=== PATIENT | male | born 1925 | race Caucasian/White ===

== ENCOUNTER 2016-08-26 17:47 | Inpatient (IN) | payer OTHER ==
[~2016-08-26] VITALS: Ht 170.2 cm; Wt 62.1 kg
[2016-08-26 18:57] LABS: Basophils # (auto) 0 uL; Basophils % (auto) 0.1 % (0.0-2.0); Eosinophils # (auto) 0 uL; Hematocrit 47.6 % (41.0-53.0); Hemoglobin 15.3 g/dL (13.5-17.5); Lymphocytes # (auto) 0.9 uL; Lymphocytes % (auto) 7.6 % (10.0-50.0); Mean Corpuscular Hemoglobin 31.9 pg (28.0-32.0); Mean Corpuscular Hgb Conc. 32.2 g/dL (32.0-36.0); Mean Corpuscular Volume 98.8 fL (80.0-100.0); Mean Platelet Volume 7.8 fL (7.4-10.4); Monocytes # (auto) 0.5 uL; Neutrophils # (auto) 10.3 uL; Neutrophils % (auto) 88.3 % (37.0-80.0); Platelet Count (auto) 263 10^3/uL (140-450); White Blood Cell 11.6 10^3/uL (4.4-10.8)
[2016-08-26 19:23] LABS: Albumin 4.6 g/dL (3.4-5.0); Bilirubin, Total 0.8 mg/dL (0.2-1.0); Calcium 10.2 mg/dL (8.5-10.1); Potassium 4.6 mmol/L (3.5-5.1); Total Protein 8.1 g/dL (6.4-8.2)
[2016-08-27] MEDS ORDERED: LORazepam 2MG/ML-1ML VIAL IV ONE ×2 (03:00→06:30)
[2016-08-27] MEDS ORDERED: LORazepam 2MG/ML-1ML VIAL ONE (06:08)
[2016-08-27] MEDS ORDERED: DOCUSATE SOD 100 MG CAP PO PRN (10:00)
[2016-08-27] MEDS ORDERED: LACTULOSE 20Gm/30ML SOLN PO PRN (10:00)
[2016-08-27] MEDS ORDERED: MORPHINE SULF INJ 2 MG/ML SYRINGE 1ML IV PRN ×2 (10:00)
[2016-08-27] MEDS ORDERED: TEMAZEPAM 15 MG CAP PO PRN (10:00)
[2016-08-27] MEDS ORDERED: NITROGLYCERIN 0.4 MG SL TAB SL PRN (10:00)
[2016-08-27] MEDS ORDERED: ACETAMINOPHEN 325 MG TAB PO PRN (10:00)
[2016-08-27] MEDS ORDERED: HYDROcodone-ACET 5/325MG TAB PO PRN (10:00)
[2016-08-27] MEDS ORDERED: ONDANSETRON HCL 4 MG/2 ML VIAL IV PRN (10:00)
[2016-08-27] MEDS ORDERED: LACTULOSE 20Gm/30ML SOLN PO ONE (10:00)
[2016-08-27] MEDS: MULTIPLE VITAMIN TAB PO SCH (10:17)
[2016-08-27] MEDS: ENOXAPARIN SOD 40 MG/0.4 ML SYRINGE SC SCH (10:17)
[2016-08-27] MEDS: FAMOTIDINE 20 MG TAB PO SCH ×2 (10:18→22:01)
[2016-08-27] MEDS: LISINOPRIL 20 MG TAB PO SCH (10:18)
[2016-08-27] MEDS: CYANOCOBALAMIN 500 MCG TAB PO SCH (10:19)
[2016-08-27] MEDS: ASPirin-EC 81 mg tab PO SCH (10:19)
[2016-08-27 13:00] VITALS: BP 123/63
[2016-08-27] MEDS: SODIUM CHLOR 0.9% PF (SALINE LOCK) 10ML VIAL IV SCH ×2 (14:07→22:02)
[2016-08-27 17:00] VITALS: BP 155/75
[2016-08-27] MEDS ORDERED: cefTRIAXone 1GM/50ML D5W 50 ML IV ONE (19:45)
[2016-08-27] MEDS ORDERED: ATORVASTATIN 20 MG TAB PO SCH (22:00)
[2016-08-27] MEDS ORDERED: TERAZOSIN HCL 5 MG CAP PO SCH (22:00)
[2016-08-27] MEDS: metroNIDAZOLE 500MG/100ML 100 ML IV SCH (22:02)
[2016-08-27] MEDS: DIAZEPAM 2 MG TAB PO PRN (23:55)
[2016-08-28] MEDS ORDERED: LORazepam 2MG/ML-1ML VIAL IV PRN (03:30)
[2016-08-28] MEDS: SODIUM CHLOR 0.9% PF (SALINE LOCK) 10ML VIAL IV SCH ×2 (05:20→14:16)
[2016-08-28] MEDS: metroNIDAZOLE 500MG/100ML 100 ML IV SCH ×2 (05:20→14:15)
[2016-08-28 06:14] LABS: Basophils # (auto) 0 uL; Basophils % (auto) 0.1 % (0.0-2.0); Eosinophils # (auto) 0 uL; Hematocrit 37.3 % (41.0-53.0); Hemoglobin 12.3 g/dL (13.5-17.5); Lymphocytes # (auto) 0.5 uL; Lymphocytes % (auto) 3.6 % (10.0-50.0); Mean Corpuscular Hemoglobin 32.5 pg (28.0-32.0); Mean Corpuscular Hgb Conc. 33.1 g/dL (32.0-36.0); Mean Corpuscular Volume 98.3 fL (80.0-100.0); Mean Platelet Volume 8.7 fL (7.4-10.4); Monocytes # (auto) 0.8 uL; Monocytes % (auto) 6.1 % (0.0-12.0); Neutrophils # (auto) 11.9 uL; Neutrophils % (auto) 90.2 % (37.0-80.0); Platelet Count (auto) 209 10^3/uL (140-450); Red Cell Distribution Width 14.1 % (11.6-16.0); White Blood Cell 13.2 10^3/uL (4.4-10.8)
[2016-08-28 06:37] LABS: Albumin 3.4 g/dL (3.4-5.0); BUN/Creatinine Ratio 22.8; Bilirubin, Total 0.9 mg/dL (0.2-1.0); Calcium 9.8 mg/dL (8.5-10.1); Potassium 4.3 mmol/L (3.5-5.1); Total Protein 6.9 g/dL (6.4-8.2)
[2016-08-28 08:30] VITALS: BP 95/55
[2016-08-28] MEDS: LISINOPRIL 20 MG TAB PO SCH (09:09)
[2016-08-28] MEDS: DIAZEPAM 2 MG TAB PO PRN (14:48)
[2016-08-28] MEDS: ASPirin-EC 81 mg tab PO SCH (14:49)
[2016-08-28] MEDS: FAMOTIDINE 20 MG TAB PO SCH (14:50)
[2016-08-28] MEDS: MULTIPLE VITAMIN TAB PO SCH (14:50)
[2016-08-28] MEDS: CYANOCOBALAMIN 500 MCG TAB PO SCH (14:50)
[2016-08-28] MEDS: ENOXAPARIN SOD 40 MG/0.4 ML SYRINGE SC SCH (14:51)
[2016-08-28 16:12] VITALS: BP 102/55
[2016-08-28] MEDS ORDERED: cefTRIAXone 1GM/50ML D5W 50 ML IV SCH (22:00)
[2016-08-29 11:03] LABS: Vitamin B12 > 2000 pg/mL (211-911)
[2016-08-29 11:05] LABS: Temperature: 22.3 C (20.0-25.0)
== END 2016-08-28 18:10 | disposition home or self-care (01) | DRG 388 ==
LOC: ER 17:55 → TELE 17:56 → TELE-CENTR 08-27 11:01
PROVIDERS: ADMIT Internal Medicine; ATTEND Internal Medicine
DX: K56.41 Fecal impaction (principal); G93.41 Metabolic encephalopathy; E83.52 Hypercalcemia; F02.80 Dementia in other diseases classified elsewhere, unspecified severity, without behavioral disturbance, psychotic disturbance, mood disturbance, and anxiety; G30.9 Alzheimer's disease, unspecified; I12.9 Hypertensive chronic kidney disease with stage 1 through stage 4 chronic kidney disease, or unspecified chronic kidney disease; K57.30 Diverticulosis of large intestine without perforation or abscess without bleeding; N18.3 Chronic kidney disease, stage 3 (moderate); N40.0 Benign prostatic hyperplasia without lower urinary tract symptoms; Z82.3 Family history of stroke; Z86.73 Personal history of transient ischemic attack (TIA), and cerebral infarction without residual deficits; Z98.890 Other specified postprocedural states; Z79.899 Other long term (current) drug therapy
CPT/HCPCS: 36415; 74176; 80053; 82607; 82746; 84439; 84443; 84484; 85025; 93005; 93306; 93886; 95819; 96374; 96375; J0696; J3490

== ENCOUNTER 2016-09-18 06:49 | Emergency (ER) | payer OTHER ==
[~2016-09-18] VITALS: Ht 172.7 cm; Wt 59.1 kg
[2016-09-18] MEDS ORDERED: SODIUM CHLORIDE 0.9% 250 ML IV ONE (07:58)
[2016-09-18 08:21] LABS: Urine Bilirubin Negative (Negative); Urine Blood Negative /uL (Negative); Urine Color Yellow (Yellow); Urine Glucose Normal (Normal); Urine Ketone Negative (Negative); Urine Mucus FEW (None Seen); Urine Nitrite Negative (Negative); Urine RBC 1 /hpf (0 - 3); Urine Squamous Epithelial Cell FEW /hpf (<5); Urine Urobilinogen Normal (Negative); Urine pH 5.5 (5.0-8.0)
[2016-09-18 08:23] LABS: Basophils # (auto) 0 uL; Basophils % (auto) 0.2 % (0.0-2.0); Eosinophils # (auto) 0 uL; Eosinophils % (auto) 0.7 % (0.0-7.0); Hematocrit 37.9 % (41.0-53.0); Lymphocytes % (auto) 13.9 % (10.0-50.0); Mean Corpuscular Hemoglobin 31.2 pg (28.0-32.0); Mean Corpuscular Hgb Conc. 31.6 g/dL (32.0-36.0); Mean Corpuscular Volume 98.6 fL (80.0-100.0); Mean Platelet Volume 8.1 fL (7.4-10.4); Monocytes # (auto) 0.5 uL; Monocytes % (auto) 6.5 % (0.0-12.0); Neutrophils # (auto) 5.5 uL; Neutrophils % (auto) 78.7 % (37.0-80.0); Platelet Count (auto) 327 10^3/uL (140-450); Red Cell Distribution Width 13.9 % (11.6-16.0)
[2016-09-18 08:33] LABS: BUN/Creatinine Ratio 24.6; Calcium 9.3 mg/dL (8.5-10.1); Magnesium 2.5 mg/dL (1.6-2.6); Potassium 4.8 mmol/L (3.5-5.1)
[2016-09-18 11:19] VITALS: BP 142/51
== END 2016-09-18 12:56 | disposition home or self-care (01) ==
LOC: ER 06:49
DX: R33.9 Retention of urine, unspecified (principal); K59.00 Constipation, unspecified; N40.0 Benign prostatic hyperplasia without lower urinary tract symptoms; F03.90 Unspecified dementia, unspecified severity, without behavioral disturbance, psychotic disturbance, mood disturbance, and anxiety; G30.9 Alzheimer's disease, unspecified; I10 Essential (primary) hypertension; Z86.73 Personal history of transient ischemic attack (TIA), and cerebral infarction without residual deficits
CPT/HCPCS: 36415; 51702; 80048; 81001; 83735; 84443; 85025; 93005; 94761; 96360; 99285; J7050

== ENCOUNTER 2016-09-27 07:02 | Emergency (ER) | payer OTHER ==
[~2016-09-27] VITALS: Ht 170.2 cm; Wt 59.0 kg
[2016-09-27 07:32] VITALS: BP 124/68
== END 2016-09-27 07:45 | disposition home or self-care (01) ==
LOC: ER 07:13
DX: Z46.82 Encounter for fitting and adjustment of non-vascular catheter (principal); Z86.73 Personal history of transient ischemic attack (TIA), and cerebral infarction without residual deficits; I10 Essential (primary) hypertension; F03.90 Unspecified dementia, unspecified severity, without behavioral disturbance, psychotic disturbance, mood disturbance, and anxiety

== ENCOUNTER 2016-09-29 16:42 | Emergency (ER) | payer OTHER ==
[~2016-09-29] VITALS: Ht 172.7 cm; Wt 53.5 kg
[2016-09-29] MEDS ORDERED: SODIUM CHLORIDE 0.9% 500 ML IVB ONE (17:52)
[2016-09-29 18:13] LABS: Basophils # (auto) 0 uL; Basophils % (auto) 0.2 % (0.0-2.0); Eosinophils # (auto) 0.1 uL; Eosinophils % (auto) 1.8 % (0.0-7.0); Hematocrit 33.4 % (41.0-53.0); Hemoglobin 10.6 g/dL (13.5-17.5); Lymphocytes # (auto) 0.9 uL; Lymphocytes % (auto) 22.5 % (10.0-50.0); Mean Corpuscular Hemoglobin 31.2 pg (28.0-32.0); Mean Corpuscular Hgb Conc. 31.6 g/dL (32.0-36.0); Mean Corpuscular Volume 98.8 fL (80.0-100.0); Mean Platelet Volume 7.3 fL (7.4-10.4); Monocytes # (auto) 0.6 uL; Neutrophils # (auto) 2.2 uL; Neutrophils % (auto) 58.5 % (37.0-80.0); Platelet Count (auto) 291 10^3/uL (140-450); Red Cell Distribution Width 14.2 % (11.6-16.0); White Blood Cell 3.8 10^3/uL (4.4-10.8)
[2016-09-29 18:33] LABS: Albumin 2.7 g/dL (3.4-5.0); Calcium 8.9 mg/dL (8.5-10.1); Potassium 4.7 mmol/L (3.5-5.1)
[2016-09-29 18:36] LABS: Bilirubin, Total 0.2 mg/dL (0.2-1.0); Total Protein 5.9 g/dL (6.4-8.2)
[2016-09-29 20:17] LABS: Urine Bilirubin Negative (Negative); Urine Color Yellow (Yellow); Urine Glucose Normal (Normal); Urine Ketone Negative (Negative); Urine Mucus FEW (None Seen); Urine Nitrite Negative (Negative); Urine RBC 37 /hpf (0 - 3); Urine Squamous Epithelial Cell MOD /hpf (<5); Urine Triple Phosphate Crystal MOD /hpf (None Seen); Urine Urobilinogen Normal (Negative); Urine pH 7.5 (5.0-8.0)
[2016-09-29 20:18] LABS: Urine Blood 1+ /uL (Negative)
[2016-09-29 21:49] VITALS: BP 101/70
== END 2016-09-29 22:03 | disposition home or self-care (01) ==
LOC: ER 16:46
DX: N39.0 Urinary tract infection, site not specified (principal); I10 Essential (primary) hypertension; Z46.6 Encounter for fitting and adjustment of urinary device; Z86.73 Personal history of transient ischemic attack (TIA), and cerebral infarction without residual deficits
CPT/HCPCS: 36415; 51702; 80053; 81001; 85025; 96360; 99284; J7030

== ENCOUNTER 2016-12-05 21:12 | Emergency (ER) | payer OTHER ==
[~2016-12-05] VITALS: Ht 167.6 cm; Wt 55.3 kg
[2016-12-06 03:35] LABS: Urine Bilirubin Negative (Negative); Urine Color Yellow (Yellow); Urine Glucose Normal (Normal); Urine Ketone Negative (Negative); Urine Mucus FEW (None Seen); Urine RBC 573 /hpf (0 - 3); Urine Urobilinogen Normal (Negative)
[2016-12-06 03:40] LABS: Urine Blood 3+ /uL (Negative); Urine Nitrite POSITIVE (Negative)
[2016-12-06 04:30] VITALS: BP 111/61
== END 2016-12-06 04:48 | disposition home or self-care (01) ==
LOC: ER 21:12
DX: R39.15 Urgency of urination (principal); Z46.6 Encounter for fitting and adjustment of urinary device; Z86.73 Personal history of transient ischemic attack (TIA), and cerebral infarction without residual deficits; I10 Essential (primary) hypertension
CPT/HCPCS: 51702; 81001

== ENCOUNTER 2016-12-22 18:48 | Emergency (ER) | payer OTHER ==
[~2016-12-22] VITALS: Ht 170.2 cm; Wt 54.0 kg
[2016-12-22 21:43] LABS: Basophils # (auto) 0 uL; Basophils % (auto) 0.3 % (0.0-2.0); Eosinophils # (auto) 0.2 uL; Eosinophils % (auto) 3.1 % (0.0-7.0); Hematocrit 37.5 % (41.0-53.0); Hemoglobin 12.3 g/dL (13.5-17.5); Lymphocytes # (auto) 1.5 uL; Lymphocytes % (auto) 28.4 % (10.0-50.0); Mean Corpuscular Hemoglobin 32.4 pg (28.0-32.0); Mean Corpuscular Hgb Conc. 32.7 g/dL (32.0-36.0); Mean Corpuscular Volume 99.2 fL (80.0-100.0); Monocytes # (auto) 0.5 uL; Monocytes % (auto) 8.4 % (0.0-12.0); Neutrophils # (auto) 3.2 uL; Neutrophils % (auto) 59.8 % (37.0-80.0); Platelet Count (auto) 234 10^3/uL (140-450); Red Cell Distribution Width 15.4 % (11.6-16.0); White Blood Cell 5.4 10^3/uL (4.4-10.8)
[2016-12-22 22:03] LABS: Albumin 3.7 g/dL (3.4-5.0); BUN/Creatinine Ratio 30.6; Bilirubin, Total 0.4 mg/dL (0.2-1.0); Calcium 9.2 mg/dL (8.5-10.1); Potassium 4.7 mmol/L (3.5-5.1); Total Protein 7.2 g/dL (6.4-8.2)
[2016-12-23 03:22] LABS: Urine Bilirubin Negative (Negative); Urine Blood Negative /uL (Negative); Urine Color Yellow (Yellow); Urine Glucose Normal (Normal); Urine Ketone Negative (Negative); Urine RBC 6 /hpf (0 - 3); Urine Triple Phosphate Crystal MOD /hpf (None Seen); Urine Urobilinogen Normal (Negative); Urine pH 8.5 (5.0-8.0)
[2016-12-23 03:23] LABS: Urine Nitrite POSITIVE (Negative)
[2016-12-23 03:24] VITALS: BP 133/71
[2016-12-23] MEDS ORDERED: LIDOCAINE 2% JELLY 11ml (GLYDO) UR ONE (03:30)
== END 2016-12-23 04:26 | disposition home or self-care (01) ==
LOC: ER 18:55
DX: Z46.6 Encounter for fitting and adjustment of urinary device (principal); I10 Essential (primary) hypertension; Z86.73 Personal history of transient ischemic attack (TIA), and cerebral infarction without residual deficits
CPT/HCPCS: 36415; 51702; 72170; 80053; 81001; 85025

== ENCOUNTER 2017-01-11 19:39 | Emergency (ER) | payer OTHER ==
[~2017-01-11] VITALS: Ht 170.2 cm; Wt 55.3 kg
[2017-01-11 20:34] VITALS: BP 144/72
[2017-01-11] MEDS ORDERED: HYDROcodone-ACET 5/325MG TAB PO ONE (21:15)
[2017-01-11 22:08] LABS: Urine Blood Negative /uL (Negative); Urine Glucose Normal (Normal); Urine Ketone Negative (Negative); Urine Mucus FEW (None Seen); Urine RBC 2 /hpf (0 - 3); Urine Triple Phosphate Crystal FEW /hpf (None Seen); Urine pH 8.5 (5.0-8.0)
[2017-01-11 22:28] LABS: Urine Bilirubin POSITIVE (Negative); Urine Color Yellow (Yellow); Urine Nitrite POSITIVE (Negative)
== END 2017-01-11 23:07 | disposition home or self-care (01) ==
LOC: ER 19:39
DX: N39.0 Urinary tract infection, site not specified (principal); Z46.6 Encounter for fitting and adjustment of urinary device; I10 Essential (primary) hypertension; Z86.73 Personal history of transient ischemic attack (TIA), and cerebral infarction without residual deficits
CPT/HCPCS: 51702; 81001

== ENCOUNTER 2017-02-02 19:23 | Emergency (ER) | payer OTHER ==
[~2017-02-02] VITALS: Ht 170.2 cm; Wt 55.3 kg
[2017-02-02 21:47] VITALS: BP 143/92
[2017-02-02 21:51] LABS: Urine Bilirubin Negative (Negative); Urine Color Yellow (Yellow); Urine Glucose Normal (Normal); Urine Ketone Negative (Negative); Urine Mucus FEW (None Seen); Urine RBC 5 /hpf (0 - 3); Urine Squamous Epithelial Cell FEW /hpf (<5); Urine Triple Phosphate Crystal MOD /hpf (None Seen); Urine Urobilinogen Normal (Negative); Urine pH 8.5 (5.0-8.0)
[2017-02-02 22:04] LABS: Urine Blood 1+ /uL (Negative); Urine Nitrite POSITIVE (Negative)
[2017-02-02] MEDS ORDERED: HYDROcodone-ACET 5/325MG TAB PO ONE (22:45)
== END 2017-02-02 22:57 | disposition home or self-care (01) ==
LOC: ER 19:23
DX: Z46.6 Encounter for fitting and adjustment of urinary device (principal); N39.0 Urinary tract infection, site not specified; I10 Essential (primary) hypertension; Z86.73 Personal history of transient ischemic attack (TIA), and cerebral infarction without residual deficits
CPT/HCPCS: 51702; 81001; 87086

== ENCOUNTER 2017-02-13 19:36 | Emergency (ER) | payer OTHER ==
[2017-02-13 20:24] VITALS: BP 154/82
== END 2017-02-14 00:47 | disposition home or self-care (01) ==
LOC: ER 19:40
DX: T83.018A Breakdown (mechanical) of other urinary catheter, initial encounter (principal); I10 Essential (primary) hypertension; Z86.73 Personal history of transient ischemic attack (TIA), and cerebral infarction without residual deficits
CPT/HCPCS: 51702

== ENCOUNTER 2017-02-26 01:57 | Emergency (ER) | payer OTHER ==
[~2017-02-26] VITALS: Ht 170.2 cm; Wt 63.5 kg
[2017-02-26 02:30] VITALS: BP 141/122
== END 2017-02-26 04:13 | disposition home or self-care (01) ==
LOC: ER 01:59
DX: R33.0 Drug induced retention of urine (principal); Z46.6 Encounter for fitting and adjustment of urinary device; I10 Essential (primary) hypertension; Z86.73 Personal history of transient ischemic attack (TIA), and cerebral infarction without residual deficits
CPT/HCPCS: 51702

== ENCOUNTER 2017-03-27 19:47 | Emergency (ER) | payer OTHER ==
[~2017-03-27] VITALS: Ht 167.6 cm; Wt 55.1 kg
[2017-03-27 21:24] LABS: Urine Bilirubin Negative (Negative); Urine Color Red (Yellow); Urine Glucose Normal (Normal); Urine Ketone Negative (Negative); Urine Nitrite Negative (Negative); Urine RBC 1488 /hpf (0 - 3); Urine Urobilinogen Normal (Negative)
[2017-03-27 21:25] LABS: Urine Blood 3+ /uL (Negative)
[2017-03-27 22:05] LABS: Basophils # (auto) 0 uL; Basophils % (auto) 0.3 % (0.0-2.0); CONDITION Y; Eosinophils # (auto) 0.1 uL; Eosinophils % (auto) 1.3 % (0.0-7.0); Hematocrit 36.9 % (41.0-53.0); Hemoglobin 12.3 g/dL (13.5-17.5); Lymphocytes # (auto) 1.2 uL; Lymphocytes % (auto) 13.1 % (10.0-50.0); Mean Corpuscular Hgb Conc. 33.2 g/dL (32.0-36.0); Mean Corpuscular Volume 99.3 fL (80.0-100.0); Mean Platelet Volume 8.2 fL (7.4-10.4); Monocytes # (auto) 0.6 uL; Neutrophils % (auto) 78.3 % (37.0-80.0); Platelet Count (auto) 232 10^3/uL (140-450)
[2017-03-27 22:11] LABS: INR 1.02 (0.9-1.15); Partial Thromboplastin Time 24.3 sec (22.64-33.71); Prothrombin Time 11.1 sec (9.37-12.3)
[2017-03-27 22:27] LABS: Albumin 3.5 g/dL (3.4-5.0); BUN/Creatinine Ratio 26.3; Bilirubin, Total 0.3 mg/dL (0.2-1.0); Calcium 8.7 mg/dL (8.5-10.1); Potassium 4.5 mmol/L (3.5-5.1); Total Protein 6.9 g/dL (6.4-8.2)
[2017-03-27 23:43] VITALS: BP 149/80
== END 2017-03-28 01:46 | disposition home or self-care (01) ==
LOC: ER 19:56
DX: R33.9 Retention of urine, unspecified (principal); I10 Essential (primary) hypertension; E78.5 Hyperlipidemia, unspecified; Z86.73 Personal history of transient ischemic attack (TIA), and cerebral infarction without residual deficits; Z46.6 Encounter for fitting and adjustment of urinary device
CPT/HCPCS: 36415; 51702; 80053; 81001; 85025; 85610; 85730

== ENCOUNTER 2017-04-14 09:07 | Emergency (ER) | payer OTHER ==
[~2017-04-14] VITALS: Ht 167.6 cm; Wt 53.5 kg
[2017-04-14 11:01] LABS: Urine Bilirubin Negative (Negative); Urine Blood 2+ /uL (Negative); Urine Color Yellow (Yellow); Urine Glucose Normal (Normal); Urine Ketone Negative (Negative); Urine Nitrite Negative (Negative); Urine RBC 44 /hpf (0 - 3); Urine Squamous Epithelial Cell FEW /hpf (<5); Urine Triple Phosphate Crystal MANY /hpf (None Seen); Urine Urobilinogen Normal (Negative); Urine pH 8.5 (5.0-8.0)
[2017-04-14 11:30] VITALS: BP 144/71
== END 2017-04-14 12:26 | disposition home or self-care (01) ==
LOC: ER 09:08
DX: N39.0 Urinary tract infection, site not specified (principal); N40.0 Benign prostatic hyperplasia without lower urinary tract symptoms; I10 Essential (primary) hypertension; Z86.73 Personal history of transient ischemic attack (TIA), and cerebral infarction without residual deficits; Z85.828 Personal history of other malignant neoplasm of skin
CPT/HCPCS: 81001

== ENCOUNTER 2017-04-19 14:16 | Emergency (ER) | payer OTHER ==
[~2017-04-19] VITALS: Ht 167.6 cm; Wt 53.5 kg
[2017-04-19] MEDS ORDERED: SODIUM CHLORIDE 0.9% 1,000 ML IV ONE (16:43)
[2017-04-19] MEDS ORDERED: FLEET ENEMA(ADULT) 135 ML PR ONE (17:30)
[2017-04-19] MEDS ORDERED: LACTULOSE 20Gm/30ML SOLN PO ONE (17:45)
[2017-04-19 18:14] LABS: Basophils # (auto) 0 uL; Basophils % (auto) 0.4 % (0.0-2.0); CONDITION Y; Eosinophils # (auto) 0.1 uL; Eosinophils % (auto) 2.4 % (0.0-7.0); Hematocrit 36.6 % (41.0-53.0); Hemoglobin 12.3 g/dL (13.5-17.5); Lymphocytes # (auto) 1.5 uL; Lymphocytes % (auto) 25.3 % (10.0-50.0); Mean Corpuscular Hemoglobin 33.5 pg (28.0-32.0); Mean Corpuscular Hgb Conc. 33.5 g/dL (32.0-36.0); Mean Platelet Volume 8.2 fL (7.4-10.4); Monocytes # (auto) 0.4 uL; Monocytes % (auto) 7.4 % (0.0-12.0); Neutrophils # (auto) 3.7 uL; Neutrophils % (auto) 64.5 % (37.0-80.0); Platelet Count (auto) 200 10^3/uL (140-450); Red Cell Distribution Width 14.2 % (11.6-16.0); White Blood Cell 5.8 10^3/uL (4.4-10.8)
[2017-04-19 19:10] LABS: BUN/Creatinine Ratio 26.2; Calcium 9.1 mg/dL (8.5-10.1); Magnesium 2.9 mg/dL (1.6-2.6); Potassium 4.6 mmol/L (3.5-5.1)
[2017-04-19 21:24] LABS: Urine Bilirubin Negative (Negative); Urine Blood 1+ /uL (Negative); Urine Color Yellow (Yellow); Urine Glucose Normal (Normal); Urine Ketone TRACE (Negative); Urine Mucus FEW (None Seen); Urine Nitrite Negative (Negative); Urine RBC 24 /hpf (0 - 3); Urine Triple Phosphate Crystal FEW /hpf (None Seen); Urine Urobilinogen Normal (Negative)
[2017-04-19 22:00] VITALS: BP 126/62
== END 2017-04-19 23:18 | disposition home or self-care (01) ==
LOC: ER 14:16
DX: K59.01 Slow transit constipation (principal); G30.9 Alzheimer's disease, unspecified; I10 Essential (primary) hypertension; Z86.73 Personal history of transient ischemic attack (TIA), and cerebral infarction without residual deficits
CPT/HCPCS: 36415; 74000; 74176; 80048; 81001; 83735; 84443; 85025; 96360

== ENCOUNTER 2017-04-25 17:47 | Emergency (ER) | payer OTHER ==
[~2017-04-25] VITALS: Ht 167.6 cm; Wt 53.5 kg
[2017-04-25 21:26] VITALS: BP 143/76
[2017-04-25 21:50] LABS: Urine Bilirubin Negative (Negative); Urine Blood 2+ /uL (Negative); Urine Color Yellow (Yellow); Urine Glucose Normal (Normal); Urine Hyaline Cast FEW /lpf (0 - 2); Urine Ketone Negative (Negative); Urine Mucus FEW (None Seen); Urine Nitrite POSITIVE (Negative); Urine RBC 21 /hpf (0 - 3); Urine Urobilinogen Normal (Negative)
[2017-04-25] MEDS ORDERED: SULFAMETHOX W/TRIMETH(800/160MG) DS TAB PO ONE (22:00)
== END 2017-04-25 22:34 | disposition home or self-care (01) ==
LOC: ER 17:54
DX: N39.0 Urinary tract infection, site not specified (principal); I10 Essential (primary) hypertension; F03.90 Unspecified dementia, unspecified severity, without behavioral disturbance, psychotic disturbance, mood disturbance, and anxiety; Z86.73 Personal history of transient ischemic attack (TIA), and cerebral infarction without residual deficits; Z85.9 Personal history of malignant neoplasm, unspecified; N40.0 Benign prostatic hyperplasia without lower urinary tract symptoms
CPT/HCPCS: 51702; 81001